=== PATIENT | male | born 1970 | race Hispanic/Latino ===

== ENCOUNTER 2022-12-07 11:14 | Emergency (ER) | payer BC ==
[~2022-12-07] VITALS: Ht 167.6 cm; Wt 93.9 kg
[2022-12-07 12:48] LABS: HEMATOCRIT 50.8 % (42-54); MEAN CORPUSCULAR HGB CONC 34.4 g/dL (32.0-36.0); MEAN CORPUSCULAR VOLUME 92.9 fL (79-99); RED BLOOD CELL COUNT(AUTO) 5.47 MIL/uL (4.50-6.20); RED CELL DISTRIBUTION WIDTH 12.5 % (11.0-15.5); WHITE BLOOD COUNT (AUTO) 10.1 K/uL (4.8-10.8)
[2022-12-07 13:11] LABS: ALBUMIN 3.5 g/dL (3.5-5.0); BILIRUBIN,TOTAL 1.7 mg/dL (0.2-1.0); CREATININE 1.4 mg/dL (0.5-1.5); POTASSIUM 3.9 mmol/L (3.5-5.1); TOTAL PROTEIN, SERUM 7.1 g/dL (6.0-8.3)
[2022-12-07 13:24] LABS: APPEARANCE,URINE CLOUDY (CLEAR); BILIRUBIN,URINE NEGATIVE (NEGATIVE); COLOR,URINE YELLOW (YELLOW); GLUCOSE, URINE (UA) NEGATIVE (NEGATIVE); KETONES,URINE NEGATIVE (NEGATIVE); LEUKOCYTE ESTERASE ,URINE NEGATIVE Leu/uL (NEGATIVE); NITRATE,URINE NEGATIVE (NEGATIVE); OCCULT BLOOD,URINE NEGATIVE (NEGATIVE); PH,URINE 5.5 (5.0-8.0); PROTEIN,URINE 50 mg/dL (NEGATIVE)
[2022-12-07 13:28] LABS: ADD UA MICROSCOPIC YES
[2022-12-07 13:29] LABS: MUCUS,URINE MANY LPF (None Seen); SQUAMOUS EPITHELIAL CELL,UR RARE /HPF (0-2)
[2022-12-07 13:31] LABS: AMPHET/METH SCREEN,URINE NEGATIVE (NEGATIVE); BARBITURATE SCREEN, URINE NEGATIVE (NEGATIVE); BENZODIAZEPINES SCREEN,URINE NEGATIVE (NEGATIVE); CANNABINOID SCREEN,URINE POSITIVE (NEGATIVE); COCAINE SCREEN,URINE POSITIVE (NEGATIVE); OPIATE SCREEN,URINE NEGATIVE (NEGATIVE); PHENCYCLIDINE SCREEN,URINE NEGATIVE (NEGATIVE)
[2022-12-07] MEDS ORDERED: ONDANSETRON 4MG INJ IVP ONE (14:00)
[2022-12-07] MEDS ORDERED: 0.9%NACL 1000ML 1,000 ML IV ONE (14:00)
[2022-12-07] MEDS ORDERED: ONDA4TAB10 PO (15:08)
[2022-12-07 15:11] VITALS: BP 133/71; PULSE 87; RESP 16; O2SAT 99
== END 2022-12-07 15:16 | disposition home or self-care (01) ==
LOC: EDH 11:14 → UNDOADMOB 11:15 → LDH 11:15 → EDH 15:16
DX: K52.9 Noninfective gastroenteritis and colitis, unspecified (principal); F14.10 Cocaine abuse, uncomplicated; F12.10 Cannabis abuse, uncomplicated; F17.200 Nicotine dependence, unspecified, uncomplicated; Z90.49 Acquired absence of other specified parts of digestive tract
CPT/HCPCS: 99284; 96374; 96361; 80053; 80305; 85027; 81001; 36415; J7030; J2405